=== PATIENT | male | born 1965 | race Caucasian/White ===

== ENCOUNTER 2018-06-17 03:44 | Emergency (ER) | payer OTHER | END 2018-06-17 05:45 | disposition home or self-care (01) | LOC: EDH 03:44 | DX: H60.8X2 Other otitis externa, left ear (principal); I10 Essential (primary) hypertension; Z90.49 Acquired absence of other specified parts of digestive tract ==

== ENCOUNTER → 2023-06-15 | Outpatient (CLI) | payer OTHER ==
[~2023-06-15] MED LIST: AMLO-257 PO; ASPI-1005 PO; HYDR-4060 PO; LOSA100T59 PO; REGADENOSON 0.4 MG/5 ML PF SYG IVP ONE
== END | disposition home or self-care (01) ==
LOC: SHCH 07:35
PROVIDERS: ATTEND Internal Medicine Cardiovascular Disease
DX: I25.10 Atherosclerotic heart disease of native coronary artery without angina pectoris (principal)
CPT/HCPCS: 78452; 96374; 93017; J2785; A9500 ×2

== ENCOUNTER → 2023-06-27 | Outpatient (CLI) | payer OTHER ==
[~2023-06-27] MED LIST changes: -REGADENOSON 0.4 MG/5 ML PF SYG IVP ONE
== END | disposition home or self-care (01) ==
LOC: SHCH 08:44
PROVIDERS: ATTEND Internal Medicine Cardiovascular Disease
DX: I25.10 Atherosclerotic heart disease of native coronary artery without angina pectoris (principal); E78.5 Hyperlipidemia, unspecified; I11.9 Hypertensive heart disease without heart failure
CPT/HCPCS: 93306

== ENCOUNTER → 2023-07-04 | Outpatient (CLI) | payer OTHER | END | disposition home or self-care (01) | LOC: RESP 13:28 | PROVIDERS: ATTEND Internal Medicine Cardiovascular Disease | DX: R06.02 Shortness of breath (principal) | CPT/HCPCS: 94060 ==

== ENCOUNTER 2023-07-25 07:50 | Day surgery (SDC) | payer OTHER ==
[2023-07-23 12:50] LABS: BASOPHILS # (AUTO) 0.05 K/uL (0.00-0.20); BASOPHILS % (AUTO) 0.8 % (0.0-5.0); EOSINOPHILS # (AUTO) 0.25 K/uL (0.00-0.70); HEMATOCRIT 43.8 % (42-54); IMMATURE GRANULOCYTE ABSOLUTE 0.02 K/uL (0-1); LYMPHOCYTES # (AUTO) 1.8 K/uL (1.0-4.8); LYMPHOCYTES % (AUTO) 29.3 % (21.0-51.0); MEAN CORPUSCULAR HEMOGLOBIN 29.8 pg (27.0-33.0); MEAN CORPUSCULAR HGB CONC 33.3 g/dL (32.0-36.0); MEAN CORPUSCULAR VOLUME 89.4 fL (79-99); MONOCYTES # (AUTO) 0.4 K/uL (0.1-1.0); MONOCYTES % (AUTO) 6.1 % (3.0-13.0); NEUTROPHILS # (AUTO) 3.7 K/uL (1.8-7.7); NEUTROPHILS % (AUTO) 59.5 % (40.0-77.0); PLATELET COUNT (AUTO) 269 K/uL (130-400); RED CELL DISTRIBUTION WIDTH 12.6 % (11.0-15.5); WHITE BLOOD COUNT (AUTO) 6.2 K/uL (4.8-10.8)
[2023-07-23 12:55] VITALS: BP 135/96; PULSE 61; RESP 19
[2023-07-23 13:00] LABS: INR <= 0.93 (0.85-1.15); PROTHROMBIN TIME 10.6 SEC (9.6-11.6)
[2023-07-23 13:02] LABS: PARTIAL THROMBOPLASTIN TIME 27.7 SEC (26.3-35.5)
[2023-07-23 13:03] LABS: CREATININE 1.1 mg/dL (0.5-1.5); POTASSIUM 4.5 mmol/L (3.5-5.1)
[2023-07-23 13:21] LABS: B-TYPE NATRIURETIC PEPTIDE 6 pg/mL (0-100)
[2023-07-23 13:40] LABS: APPEARANCE,URINE CLEAR (CLEAR); BILIRUBIN,URINE NEGATIVE (NEGATIVE); COLOR,URINE LIGHT-YELLOW (YELLOW); GLUCOSE, URINE (UA) NEGATIVE (NEGATIVE); KETONES,URINE NEGATIVE (NEGATIVE); LEUKOCYTE ESTERASE ,URINE NEGATIVE Leu/uL (NEGATIVE); NITRATE,URINE NEGATIVE (NEGATIVE); PH,URINE 5.5 (5.0-8.0); PROTEIN,URINE NEGATIVE (NEGATIVE); UROBILINOGEN,URINE 0.2 mg/dL (0.2-1.0)
[2023-07-23 13:47] LABS: ADD UA MICROSCOPIC YES
[2023-07-23 13:56] LABS: MUCUS,URINE RARE LPF (None Seen); RBC,URINE 0-1 /HPF (0-1)
[~2023-07-25] VITALS: Ht 188 cm; Wt 100.2 kg
[2023-07-25] VITALS (11 sets, daily range): BP systolic 100–149; BP diastolic 74–96; PULSE 56–78; RESP 10–18
[~2023-07-25 07:50] MED LIST changes: -HYDR-4060 PO
[2023-07-25] MEDS: 0.9%NACL 1000ML 1,000 ML IV ONE (08:23)
[2023-07-25] MEDS ORDERED: HEPARIN 10,000 UNIT/10ML (1,000 UNIT/ML) VIAL ONE ×2 (08:34→09:46)
[2023-07-25] MEDS ORDERED: IOHEXOL-350 50ML VIAL IV ONE (08:34)
[2023-07-25] MEDS ORDERED: NITROGLYCERIN 50MG VIAL ONE (08:34)
[2023-07-25] MEDS ORDERED: SODIUM BICARB 50MEQ 50ML VIAL 50 ML ONE (08:34)
[2023-07-25] MEDS ORDERED: IOHEXOL-350 75 ML VIAL IV ONE ×2 (08:34→09:46)
[2023-07-25] MEDS ORDERED: LIDOCAINE HCL 400MG/20ML VIAL ONE (08:34)
[2023-07-25] MEDS ORDERED: MEPERIDINE-PF 25 MG/ML SYG ONE ×3 (09:02→09:47)
[2023-07-25] MEDS ORDERED: MIDAZOLAM HCL 1 MG/ML 2ML VIAL ONE ×3 (09:02→09:47)
[2023-07-25] MEDS ORDERED: NICARDIPINE 25MG INJ IV ONE (09:06)
[2023-07-25] MEDS ORDERED: CLOPIDOGREL 300MG TAB ONE (10:13)
[2023-07-25] MEDS ORDERED: ACETAMINOPHEN WITH CODEINE 1 TAB TAB PO PRN ×2 (10:30)
[2023-07-25] MEDS ORDERED: 0.9%NACL 1000ML 1,000 ML IV SCH (10:30)
[2023-07-25] MEDS ORDERED: ONDANSETRON 4MG INJ IVP PRN (10:30)
== END 2023-07-25 17:00 | disposition home or self-care (01) ==
LOC: DAH 07:50
PROVIDERS: ATTEND Internal Medicine Cardiovascular Disease
DX: I25.119 Atherosclerotic heart disease of native coronary artery with unspecified angina pectoris (principal); I10 Essential (primary) hypertension; M19.90 Unspecified osteoarthritis, unspecified site; E78.5 Hyperlipidemia, unspecified; F17.220 Nicotine dependence, chewing tobacco, uncomplicated; Z79.899 Other long term (current) drug therapy; Z98.890 Other specified postprocedural states; Z86.73 Personal history of transient ischemic attack (TIA), and cerebral infarction without residual deficits; Z86.16 Personal history of COVID-19; Z82.49 Family history of ischemic heart disease and other diseases of the circulatory system; Z79.82 Long term (current) use of aspirin; Z79.01 Long term (current) use of anticoagulants; Z82.61 Family history of arthritis
CPT/HCPCS: 80048; 83880; 85025; 85610; 85730; 81001; 36415 ×2; 71045; 93005; 92978; 85347 ×2; 93458; C9600; C1769 ×2; C1894 ×2; C1725; C1874; A4649; C1887; C1753; J3490 ×4; J7030; J1644 ×2; J2250 ×3; J2175 ×3; Q9967; A4215; A6251; A4222; A6260; A4221; A4663; A4216; A6206; A4606; A4223 ×3; 96360; 96361; 99156; 99157

== ENCOUNTER 2023-09-12 10:09 | Observation (INO) | payer OTHER ==
[~2023-09-12] VITALS: Ht 188 cm; Wt 97.3 kg
[~2023-09-12 10:09] MED LIST changes: -LOSA100T59 PO
[2023-09-12 11:04] LABS: CREATININE 1.1 mg/dL (0.5-1.3); INR <= 0.93 (0.85-1.15); POTASSIUM 4.2 mmol/L (3.5-5.1); PROTHROMBIN TIME 10.5 SEC (9.6-11.6)
[2023-09-12 11:05] LABS: APPEARANCE,URINE CLEAR (CLEAR); BILIRUBIN,URINE NEGATIVE (NEGATIVE); COLOR,URINE COLORLESS (YELLOW); GLUCOSE, URINE (UA) NEGATIVE (NEGATIVE); KETONES,URINE NEGATIVE (NEGATIVE); LEUKOCYTE ESTERASE ,URINE NEGATIVE Leu/uL (NEGATIVE); NITRATE,URINE NEGATIVE (NEGATIVE); OCCULT BLOOD,URINE NEGATIVE (NEGATIVE); PROTEIN,URINE NEGATIVE (NEGATIVE); UROBILINOGEN,URINE 0.2 mg/dL (0.2-1.0)
[2023-09-12 11:06] LABS: ADD UA MICROSCOPIC NO
[2023-09-12 11:08] LABS: ALBUMIN 3.9 g/dL (3.5-5.0); BILIRUBIN,TOTAL 0.4 mg/dL (0.2-1.0); MAGNESIUM 1.9 mg/dL (1.80-2.40); TOTAL PROTEIN, SERUM 7.5 g/dL (6.0-8.3)
[2023-09-12] MEDS: NITROGLYCERIN 1GM OINT 1 INCH/1GM TD ONE (12:33)
[2023-09-12] MEDS ORDERED: DOCUSATE SODIUM 100 MG CAP PO PRN (14:30)
[2023-09-12] MEDS ORDERED: NITROGLYCERIN 0.4 MG SL TAB SL PRN (14:30)
[2023-09-12] MEDS ORDERED: DIPHENHYDRAMINE HCL 25 MG CAPSULE PO PRN (14:30)
[2023-09-12] MEDS ORDERED: GUAIFENESIN SUGAR-FREE 100 MG/5 ML UDCUP PO PRN (14:30)
[2023-09-12] MEDS ORDERED: ACETAMINOPHEN 325 MG TAB PO PRN ×2 (14:30)
[2023-09-12] MEDS ORDERED: POTASSIUM CHLORIDE 20MEQ/100ML 100 ML IV PRN ×2 (14:30)
[2023-09-12] MEDS ORDERED: POTASSIUM CHLORIDE 10% ELIXIR 20 MEQ/15 ML UDCUP PO PRN (14:30)
[2023-09-12] MEDS ORDERED: KCL 20 MEQ ERTAB PO PRN (14:30)
[2023-09-12] MEDS ORDERED: LACTULOSE 20 GM/30 ML UDCUP PO PRN (14:30)
[2023-09-12] MEDS ORDERED: MAGNESIUM 2GM PREMIX 50ML 50 ML IV PRN (14:30)
[2023-09-12] MEDS ORDERED: POLYETHYLENE GLYCOL 3350 17 GM POWD.PACK PO PRN (14:30)
[2023-09-12] MEDS ORDERED: DiphenhydrAMINE HCL 50 MG/ML VIAL IV PRN (14:30)
[2023-09-12] MEDS ORDERED: ONDANSETRON 4MG INJ IV PRN (14:30)
[2023-09-12] MEDS ORDERED: ZOLPIDEM TARTRATE 5 MG TAB PO PRN (14:30)
[2023-09-12] MEDS ORDERED: GUAIFENESIN-DM 200/20 MG 10 ML PO PRN (14:30)
[2023-09-12] MEDS ORDERED: HYDRALAZINE 25MG TABLET PO PRN (14:30)
[2023-09-12 14:55] LABS: BASOPHILS # (AUTO) 0.05 K/uL (0.00-0.20); BASOPHILS % (AUTO) 0.8 % (0.0-5.0); EOSINOPHILS # (AUTO) 0.22 K/uL (0.00-0.70); EOSINOPHILS % (AUTO) 3.7 % (0.0-8.0); HEMATOCRIT 41.6 % (42-54); IMMATURE GRANULOCYTE ABSOLUTE 0.01 K/uL (0-1); LYMPHOCYTES # (AUTO) 1.5 K/uL (1.0-4.8); LYMPHOCYTES % (AUTO) 25.5 % (21.0-51.0); MEAN CORPUSCULAR HEMOGLOBIN 29.8 pg (27.0-33.0); MEAN CORPUSCULAR HGB CONC 34.1 g/dL (32.0-36.0); MEAN CORPUSCULAR VOLUME 87.2 fL (79-99); MONOCYTES # (AUTO) 0.3 K/uL (0.1-1.0); MONOCYTES % (AUTO) 5.5 % (3.0-13.0); NEUTROPHILS # (AUTO) 3.9 K/uL (1.8-7.7); NEUTROPHILS % (AUTO) 64.3 % (40.0-77.0); PLATELET COUNT (AUTO) 254 K/uL (130-400); RED BLOOD CELL COUNT(AUTO) 4.77 MIL/uL (4.50-6.20); RED CELL DISTRIBUTION WIDTH 12.7 % (11.0-15.5)
[2023-09-12] MEDS: HEPARIN 5,000 UNIT VIAL IV PRN (15:35)
[2023-09-12] MEDS: HEPARIN 25,000 UNITS/250ML D5W 250 ML IV SCH (15:41)
[2023-09-12 15:50] LABS: INR <= 0.93 (0.85-1.15); PROTHROMBIN TIME 10.8 SEC (9.6-11.6)
[2023-09-12 15:54] LABS: AMPHET/METH SCREEN,URINE NEGATIVE (NEGATIVE); BARBITURATE SCREEN, URINE NEGATIVE (NEGATIVE); BENZODIAZEPINES SCREEN,URINE NEGATIVE (NEGATIVE); CANNABINOID SCREEN,URINE NEGATIVE (NEGATIVE); COCAINE SCREEN,URINE NEGATIVE (NEGATIVE); OPIATE SCREEN,URINE NEGATIVE (NEGATIVE); PHENCYCLIDINE SCREEN,URINE NEGATIVE (NEGATIVE)
[2023-09-12 16:09] LABS: D-DIMER 216 ng/mL (0-500)
[2023-09-12] MEDS: INSULIN HUMULIN R 100 UNIT/ML 3ML SQ SCH (16:30)
[2023-09-12 18:15] VITALS: O2SAT 95
[2023-09-12] MEDS ORDERED: CLOP75TA32 PO (18:28)
[2023-09-12] MEDS ORDERED: LOSA50TA64 PO (18:28)
[2023-09-12] MEDS ORDERED: ATOR40TA69 PO (18:32)
[2023-09-12] MEDS ORDERED: METO-408 PO (19:19)
[2023-09-12] MEDS ORDERED: ROSU10TA28 PO (19:19)
[2023-09-12 20:00] VITALS: BP 110/72; PULSE 107; RESP 17
[2023-09-12 20:08] VITALS: O2SAT 94
[2023-09-12] MEDS: FAMOTIDINE 20MG VIAL IV SCH (21:09)
[2023-09-12] MEDS: ATORVASTATIN 40 MG TABLET PO SCH (21:09)
[2023-09-13] VITALS (7 sets, daily range): BP systolic 105–126; BP diastolic 65–95; PULSE 63–82; RESP 16–20; O2SAT 94–98
[2023-09-13 04:31] LABS: ABG BASE EXCESS 1.4 mmol/L (-2.0-3.0); ABG HCO3 26.7 mmol/L (21.0-28.0); ABG OXYGEN SATURATION 92.1 % (95.0-99.0); ABG PCO2 45 mmHg (35-48); ABG PH 7.396 (7.35-7.450); PO2, ARTERIAL BG 63.4 mmHg (83.0-108.0); VENT MODE, BG ROOMAIR (ROOM AIR)
[2023-09-13 05:19] LABS: BASOPHILS # (AUTO) 0.05 K/uL (0.00-0.20); BASOPHILS % (AUTO) 0.7 % (0.0-5.0); EOSINOPHILS # (AUTO) 0.38 K/uL (0.00-0.70); EOSINOPHILS % (AUTO) 5.2 % (0.0-8.0); HEMATOCRIT 41.7 % (42-54); IMMATURE GRANULOCYTE ABSOLUTE 0.01 K/uL (0-1); LYMPHOCYTES # (AUTO) 2.3 K/uL (1.0-4.8); LYMPHOCYTES % (AUTO) 31.4 % (21.0-51.0); MEAN CORPUSCULAR HEMOGLOBIN 30.2 pg (27.0-33.0); MEAN CORPUSCULAR HGB CONC 33.6 g/dL (32.0-36.0); MEAN CORPUSCULAR VOLUME 90.1 fL (79-99); MONOCYTES # (AUTO) 0.4 K/uL (0.1-1.0); NEUTROPHILS # (AUTO) 4.2 K/uL (1.8-7.7); NEUTROPHILS % (AUTO) 56.6 % (40.0-77.0); PLATELET COUNT (AUTO) 233 K/uL (130-400); RED BLOOD CELL COUNT(AUTO) 4.63 MIL/uL (4.50-6.20); RED CELL DISTRIBUTION WIDTH 12.9 % (11.0-15.5); WHITE BLOOD COUNT (AUTO) 7.4 K/uL (4.8-10.8)
[2023-09-13 05:40] LABS: ALBUMIN 3.1 g/dL (3.5-5.0); BILIRUBIN,TOTAL 0.3 mg/dL (0.2-1.0); CREATININE 1.3 mg/dL (0.5-1.3); MAGNESIUM 1.9 mg/dL (1.80-2.40); POTASSIUM 3.8 mmol/L (3.5-5.1); TOTAL PROTEIN, SERUM 6.5 g/dL (6.0-8.3)
[2023-09-13] MEDS: REGADENOSON 0.4 MG/5 ML PF SYG IVP SCH (06:30)
[2023-09-13] MEDS: ASPIRIN 81MG CHEW TAB PO SCH (09:00)
[2023-09-13] MEDS: CLOPIDOGREL 75MG TAB PO SCH ×2 (09:00→15:55)
[2023-09-13] MEDS ORDERED: CYCL5TAB PO (16:50)
[2023-09-13] MEDS ORDERED: IBUP-2784 PO (16:52)
[2023-09-13] MEDS ORDERED: NON-FORMULARY MEDICATION 1 EACH (Rosuvastatin Calcium 10 MG) PO SCH (19:00)
[2023-09-13] MEDS ORDERED: METOPROLOL SUCCINATE 25 MG TAB.SR.24H PO SCH (21:00)
[2023-09-13] MEDS ORDERED: ASPIRIN 81MG CHEW TAB PO SCH (21:00)
[2023-09-13] MEDS ORDERED: LOSARTAN 50 MG TABLET PO SCH (21:00)
[2023-09-14] MEDS ORDERED: AMLODIPINE 5 MG TAB PO SCH (09:00)
== END 2023-09-13 18:35 | disposition home or self-care (01) ==
LOC: EDH 10:09 → EDHIP 14:12 → 3DH 17:30
PROVIDERS: ADMIT Internal Medicine Critical Care Medicine; ATTEND Internal Medicine Critical Care Medicine
DX: R07.89 Other chest pain (principal); I10 Essential (primary) hypertension; E78.5 Hyperlipidemia, unspecified; I25.10 Atherosclerotic heart disease of native coronary artery without angina pectoris; E78.00 Pure hypercholesterolemia, unspecified; M06.9 Rheumatoid arthritis, unspecified; E66.3 Overweight; F17.220 Nicotine dependence, chewing tobacco, uncomplicated; Z86.16 Personal history of COVID-19; Z68.28 Body mass index [BMI] 28.0-28.9, adult; Z95.5 Presence of coronary angioplasty implant and graft; Z79.899 Other long term (current) drug therapy
CPT/HCPCS: 96374; 96376 ×2; 96375; 99285; 83735 ×2; 84484 ×5; 80053 ×2; 80305; 85025 ×2; 85378; 85610 ×2; 85730 ×6; 82948 ×5; 81003; 36415 ×2; 71045 ×2; 93005; 82803; 83880; 93017; 78452; 93306; 36600; G0378 ×24; J3490 ×2; J1644 ×3; J2785; A9500 ×2; 94760

== ENCOUNTER → 2023-10-04 | Outpatient (CLI) | payer OTHER ==
[~2023-10-04] MED LIST changes: +CLOP75TA32 PO; +CYCL5TAB PO; +IBUP-2784 PO; +LOSA50TA64 PO; +METO-408 PO; +METOPROLOL TARTRATE 1 MG/ML 5ML VIAL IV ONE; +ROSU10TA28 PO
== END | disposition home or self-care (01) ==
LOC: RAH 07:54
PROVIDERS: ATTEND Internal Medicine Cardiovascular Disease
DX: I25.10 Atherosclerotic heart disease of native coronary artery without angina pectoris (principal); K44.9 Diaphragmatic hernia without obstruction or gangrene
CPT/HCPCS: 75574; J3490

== ENCOUNTER 2024-11-06 05:51 | Day surgery (SDC) | payer OTHER ==
[2024-11-04 08:58] LABS: BASOPHILS # (AUTO) 0.04 K/uL (0.00-0.20); BASOPHILS % (AUTO) 0.8 % (0.0-5.0); EOSINOPHILS # (AUTO) 0.34 K/uL (0.00-0.70); EOSINOPHILS % (AUTO) 6.5 % (0.0-8.0); HEMATOCRIT 45.5 % (42-54); IMMATURE GRANULOCYTE ABSOLUTE 0.01 K/uL (0-1); LYMPHOCYTES # (AUTO) 1.3 K/uL (1.0-4.8); LYMPHOCYTES % (AUTO) 25.4 % (21.0-51.0); MEAN CORPUSCULAR HEMOGLOBIN 29.9 pg (27.0-33.0); MEAN CORPUSCULAR VOLUME 90.6 fL (79-99); MONOCYTES # (AUTO) 0.3 K/uL (0.1-1.0); NEUTROPHILS # (AUTO) 3.2 K/uL (1.8-7.7); NEUTROPHILS % (AUTO) 61.1 % (40.0-77.0); PLATELET COUNT (AUTO) 234 K/uL (130-400); RED BLOOD CELL COUNT(AUTO) 5.02 MIL/uL (4.50-6.20); RED CELL DISTRIBUTION WIDTH 13.1 % (11.0-15.5); WHITE BLOOD COUNT (AUTO) 5.2 K/uL (4.8-10.8)
[2024-11-04 09:01] VITALS: BP 153/96; PULSE 54; RESP 17; TEMP 97.3
[2024-11-04 09:07] LABS: CREATININE 1.1 mg/dL (0.5-1.3); POTASSIUM 4.4 mmol/L (3.5-5.1)
[2024-11-04 09:08] LABS: INR 0.97 (0.85-1.15); PROTHROMBIN TIME 10.3 SEC (9.6-11.6)
[2024-11-04 09:09] LABS: PARTIAL THROMBOPLASTIN TIME 27.9 SEC (26.3-35.5)
[2024-11-04 09:22] LABS: B-TYPE NATRIURETIC PEPTIDE 21 pg/mL (0-100)
[2024-11-04 09:25] LABS: APPEARANCE,URINE CLEAR (CLEAR); BILIRUBIN,URINE NEGATIVE (NEGATIVE); COLOR,URINE LIGHT-YELLOW (YELLOW); GLUCOSE, URINE (UA) NEGATIVE (NEGATIVE); KETONES,URINE NEGATIVE (NEGATIVE); LEUKOCYTE ESTERASE ,URINE NEGATIVE Leu/uL (NEGATIVE); NITRATE,URINE NEGATIVE (NEGATIVE); OCCULT BLOOD,URINE NEGATIVE (NEGATIVE); PH,URINE 6.5 (5.0-8.0); PROTEIN,URINE NEGATIVE (NEGATIVE); UROBILINOGEN,URINE 0.2 mg/dL (0.2-1.0)
[2024-11-04 09:32] LABS: ADD UA MICROSCOPIC NO
--- NOTE | 2024-11-04 10:06 | EKG ---
[facility] Test Date: 2024-11-04 Test Time: 08:46:07 Pat Name: LAURA CHAVARRIA Department: [facility] Room: Gender: M Neurology Professor: [id number] : 1965 Requested By: Sandhya MATHIS Order Number: [id number] Reading MD: Zoe Maradiaga Measurements Intervals [place] Rate: 59 P: 7 NC: 203 QRS: 84 QRSD: 94 T: 56 QT: 422 QTc: 419 Interpretive Statements Sinus rhythm Borderline prolonged NC interval Compared to ECG 09/12/2023 10:18:04 No significant changes Electronically Signed On 11-04-2024 18:53:45 CDT by Zoe Maradiaga Please click the below link to view image of tracing.
--- NOTE | 2024-11-04 10:20 | HMCIMG ---
Exam Type: CHEST 1VW Clinical Information: PREOP Comparison: None Findings: The lungs are clear of infiltrates. The heart is normal in size. The bony and soft tissue structures of the chest are unremarkable. Impression: Clear lungs.
[2024-11-06] VITALS (9 sets, daily range): BP systolic 110–144; BP diastolic 79–94; PULSE 56–73; RESP 12–19; TEMP 96.9–97.5
[~2024-11-06] VITALS: Ht 188 cm; Wt 97.3 kg
[~2024-11-06 05:51] MED LIST changes: -AMLO-257 PO; -ASPI-1005 PO; +ASPI-1443 PO; -CYCL5TAB PO; -IBUP-2784 PO; -LOSA50TA64 PO; -METO-408 PO; +METO25TA6 PO; -METOPROLOL TARTRATE 1 MG/ML 5ML VIAL IV ONE; -ROSU10TA28 PO; +ROSU10TA72 PO
[2024-11-06] MEDS: 0.9%NACL 1000ML 1,000 ML IV SCH (06:30)
[2024-11-06] MEDS ORDERED: LIDOCAINE HCL 400MG/20ML VIAL ONE (07:12)
[2024-11-06] MEDS ORDERED: SODIUM BICARB 50MEQ 50ML VIAL 50 ML ONE (07:12)
[2024-11-06] MEDS ORDERED: HEParin 10,000 UNIT/10ML (1,000 UNIT/ML) VIAL ONE (07:13)
[2024-11-06] MEDS ORDERED: HEParin-NS 1,000 UNIT/500 ML 1,000 ML IV ONE (07:13)
[2024-11-06] MEDS ORDERED: niCARDIpine 25MG INJ IV ONE (07:13)
[2024-11-06] MEDS ORDERED: NITROGLYCERIN 50MG VIAL ONE (07:14)
[2024-11-06] MEDS ORDERED: FENTanyl CITRate PF 50 MCG/1 ML 2ML VIAL ONE ×2 (07:14→08:23)
[2024-11-06] MEDS ORDERED: MIDAZOLAM HCL 1 MG/ML 2ML VIAL ONE ×4 (07:15→08:37)
[2024-11-06] MEDS ORDERED: IOHEXOL 350 MG/ML 100ML INFUS..BTL IV ONE (07:16)
[2024-11-06] MEDS ORDERED: 0.9%NACL 1000ML 1,000 ML IV SCH (08:00)
--- NOTE | 2024-11-06 09:50 | NUR ---
VASC BAND: VASC BAND REMOVED WITH NO ACTIVE BLEEDING PRESENT. CLEANSED AREA WITH DERMABOND FOLLOWED BY APPLYING STERILE 2X2 GAUZE THAN 2X2 TEGADERM. NO REDNESS/SWELLING NOTED TO SURROUNDING AREA RT WRIST.
--- NOTE | 2024-11-06 10:49 | CCATH ---
PROCEDURE NOTE PROCEDURES: * Left heart catheterization. * Selective diagnostic right and left coronary arteriogram. * Conscious sedation for 30 minutes. INDICATIONS: * Known history of coronary artery disease. * Status post remote angioplasty and stenting of the proximal LAD. * Recurrent angina. COMPLICATIONS: None. TOTAL CONTRAST: 50 mL. APPROACH: Right radial approach. DESCRIPTION OF PROCEDURE: The patient was taken to the cardiac medical lab technologist after appropriate operative consents were signed. He was prepped and draped in the usual fashion. After conscious sedation was administered, the right radial artery region was infiltrated with 2% Xylocaine without epinephrine. Access was obtained and a 6-[place] radial slender sheath was advanced in a retrograde fashion with a modified Seldinger technique. Radial cocktail was administered. At this point, a TIG 4 catheter was advanced over an indwelling wire and placed in the left ventricular cavity. Left ventricular end-diastolic pressure measurement was obtained. Ventriculography was deferred. The patient had a normal LVEF by echocardiography. Pullback revealed no aortic stenosis. At this point, the catheter was advanced and placed in the left main coronary artery. This was imaged in multiplane. This was a large vessel that was free of disease. It triplicated in the LAD, an intermediate, and the circumflex. The LAD was a large vessel that was tortuous in its proximal portion. It gave rise to several small diagonals and several septal perforators. The patient had a patent stent in the proximal portion of the LAD, traversing the origin of the first diagonal which was a tiny vessel. The stent was widely patent with excellent brisk antegrade flow. The LAD was large and had no other lesions. The intermediate was a large vessel that was tortuous and free of disease. Circumflex was a large vessel that gave rise to a large branching obtuse marginal and was free of disease. The catheter was then redirected and engaged in the right coronary artery ostium. Images were obtained in multiplane. The right coronary artery was a large vessel that was fairly tortuous in its proximal portion. It gave rise to an acute marginal, a PDA, and a large branching PLVB system. There were no significant stenotic lesions in the right coronary artery. At this point, the procedure was completed. The catheter was withdrawn over an indwelling wire. The patient tolerated it well, left the cardiac medical lab technologist in stable condition. The radial band was applied with good hemostasis. FINAL IMPRESSION: * Patent chronic LAD stent deployed in 06/2023 with no other significant stenotic lesions. * No . PLAN: Continue conservative management. TID: [id number] RECEIPT: [id number]
--- NOTE | 2024-11-21 10:05 | HMCSR ---
APPROVED REPORT EXAM: Two-dimensional and M-mode echocardiogram with Doppler and color Doppler. INDICATION ICD: Dyspnea R06.00 2D Dimensions RVDd4.0 cmLVEF(%)61.8 (>50%)LVED Vol(simp.)110.0 mL IVSd0.9 (0.7-1.1cm)FS(%)33 %LVES Vol(simp.)54.0 mL LVDd4.7 (3.8-5.6cm)LA (2D)2.3 (1.6-4.0cm)LVEF(%, simp.)51 % PWd0.9 (0.7-1.1cm)Ao Root(2D)3.8 (2.0-3.7cm)LA ESV INDEX (BP)15.21 mL/m2 LVDs3.1 (2.5-4.0cm)LVOT diam2.4 (1.8-2.4cm) IVC diam1.8 cm Deformation Strain Apical 4-16.6 % Apical 2-16.3 % Apical 3-14.9 % Global Strain-15.9 % M-Mode Dimensions EPSS0.8 cm LA (MM)2.6 (1.6-4.0cm) Ao Root(MM)3.5 (2.0-3.7cm) Aortic Valve AoV Vmax1.0 m/Harsh Peak GR3.7 mmHgLVOT Vmax0.7 m/s AoV VTI0.2 mAo Mean GR2.0 mmHgLVOT VTI0.16 m BOBO (VMAX)3.44 cm2AVA (VTI) 3.7 cm2 Mitral Valve MV E Vmax40.6 cm/sDECEL Hukp448 ms MV A Vmax45.3 cm/sP 1/2 T68 ms E/A ratio0.9MVA (PHT)3.2 cm2 TDI E/E' Medial7.5E/E' Lateral5.1 Medial E' Peak V5.43 cm/sLateral E' Peak V8.00 cm/s Tricuspid Valve TR Vmax1.6 m/sRVSP9.9 mmHg TR Peak GR9.9 mmHg Left Ventricle The left ventricle is normal size. No regional wall motion abnormalities noted. gGobal strain of -16% . There is normal left ventricular wall thickness. LVEF is 50-55%. The left ventricular diastolic fun ction is normal. Right Ventricle The right ventricle is normal size. The right ventricular systolic function is normal. Atria The left atrium size is normal. The right atrium size is normal. Aortic Valve The aortic valve is normal in structure. No aortic regurgitation is present. There is no aortic valvu lar stenosis. Mitral Valve The mitral valve is normal in structure. There is no mitral valve regurgitation noted. There is no mi tral valve stenosis. Tricuspid Valve The tricuspid valve is normal in structure. There is no tricuspid valve regurgitation noted. Pulmonic Valve The pulmonary valve is normal in structure. There is no pulmonic valvular regurgitation. Great Vessels The aortic root is normal in size. The IVC is normal in size and collapses >50% with inspiration. Pericardium There is no pericardial effusion. Conclusion LVEF is 50-55%. No regional wall motion abnormalities noted. gGobal strain of -16%.
== END 2024-11-06 12:05 | disposition home or self-care (01) ==
LOC: DAH 05:51
PROVIDERS: ATTEND Internal Medicine Cardiovascular Disease
DX: I25.118 Atherosclerotic heart disease of native coronary artery with other forms of angina pectoris (principal); I10 Essential (primary) hypertension; E78.5 Hyperlipidemia, unspecified; R06.09 Other forms of dyspnea; F17.200 Nicotine dependence, unspecified, uncomplicated; R05.9 Cough, unspecified; M54.2 Cervicalgia; M19.90 Unspecified osteoarthritis, unspecified site; Z98.890 Other specified postprocedural states; Z79.899 Other long term (current) drug therapy; Z95.5 Presence of coronary angioplasty implant and graft; Z82.49 Family history of ischemic heart disease and other diseases of the circulatory system; Z82.61 Family history of arthritis; Z79.01 Long term (current) use of anticoagulants
CPT/HCPCS: 80048; 83880; 85025; 85610; 85730; 81003; 36415; 71045; 93005; 93458; 99156; 99157; 93306; C1769; C1894 ×3; A4649; Q9965; J3010; J3490 ×4; J7030; J1644 ×2; J2250 ×2; Q9967; A4215; A4222; A6260; A4221; A4663; A4216; A6206; A4606; A4223 ×3; 96360; 96361

== ENCOUNTER → 2025-04-07 | Outpatient (CLI) | payer OTHER ==
[~2025-04-07] MED LIST changes: +CODE473S6 PO; -ROSU10TA72 PO; +ROSU10TA98 PO
--- NOTE | 2025-04-07 10:08 | HMCIMG ---
DOUBLE CONTRAST UPPER GI SERIES: CLINICAL HISTORY: Diaphragmatic hernia without obstruction Finding: The study was performed using provocative maneuvers After swallowing effervescent crystal and thick barium, there is no definite intrinsic or extrinsic lesion seen in the esophagus. There is a small hiatal hernia with grade 2 esophageal reflux The stomach is normal in size, shape, and configuration. The rugal folds appear to be normal. The duodenal bulb, duodenal sweep, and upper jejunum appear to be normal. Fluoroscopy time: 0.9 minutes . IMPRESSION: Small hiatal hernia with grade 2 esophageal reflux
== END | disposition home or self-care (01) ==
LOC: RAH 08:26
PROVIDERS: ATTEND Internal Medicine Gastroenterology
DX: K21.9 Gastro-esophageal reflux disease without esophagitis (principal); K44.9 Diaphragmatic hernia without obstruction or gangrene
CPT/HCPCS: 74240